=== PATIENT | female | born 1960 | race Caucasian/White ===

== ENCOUNTER 2019-12-02 10:21 | Emergency (ER) | payer BC, SELFPAY ==
--- NOTE | 2019-12-02 10:27 | ED_ITS ---
HPI - General Adult General Chief complaint: Urogenital-Female Stated complaint: confused /thinks uti or ear Source: patient and RN notes reviewed Mode of arrival: ambulatory Limitations: no limitations Review of Systems Review of Systems: All systems reviewed & are unremarkable except as noted in HPI and below [facility] Comments At time of signature, agree with nursing past medical, surgical, social and family history. There is no relevant family history pertinent to the presenting complaint Course Course Emergency Course: Patient is aware of diagnosis, understands and agrees to treatment plan. Anticipatory guidance given. Patient agrees to follow-up as directed and is aware of reasons to seek care at the emergency department. Portions of this record may have been created with voice recognition software Vital Signs Vital signs: Reviewed. Critical Care Time Critical Care Time Critical Care Time: No
== END 2019-12-02 10:43 | disposition left against medical advice (07) ==
LOC: EXPBETH 10:27
PROVIDERS: Emergency Provider Nurse Practitioner; PCP Internal Medicine
DX: Z53.21 Procedure and treatment not carried out due to patient leaving prior to being seen by health care provider (principal)
CPT/HCPCS: 99199

== ENCOUNTER 2020-08-24 14:48 | Outpatient (CLI) | payer BC, SELFPAY ==
[2020-08-24 15:31] LABS: Hematocrit 38.5 % (37.0-47.0); Mean Corpuscular HGB Conc 33.8 g/dl (32-36); Mean Corpuscular Hemoglobin 29.9 pg (26-34); Mean Corpuscular Volume 88.5 fl (80-100); Mean Platelet Volume 10.3 fl (7.4-10.4); Platelet Count Result 258 k/mm3 (150-375); Red Blood Count 4.35 M/mm3 (4.2-5.4); Red Cell Distribution Width 13.2 % (11.5-14.5)
[2020-08-24 15:43] LABS: Alanine Aminotransferase 37 U/L (4-35); Albumin Level 4.8 g/dL (3.5-5.1); Alkaline Phosphatase 118 U/L (38-126); Anion Gap 12 mmol/L (8-16); Aspartate Amino Transferase 39 U/L (14-36); Bilirubin,Total 1.2 mg/dL (0.2-1.3); Blood Urea Nitrogen 5 mg/dL (7-17); Calcium 9.8 mg/dL (8.4-10.2); Carbon Dioxide 22 mmol/L (22-30); Chloride 98 mmol/L (98-107); Estimated Glomerular Filt Rate > 60; Glucose 184 mg/dL (65-105); Sodium 132 mmol/L (137-145)
[2020-08-24 15:54] LABS: Iron 43 ug/dL (37-170)
[2020-08-24 16:03] LABS: Percent Iron Saturation 10 % (20-50)
[2020-08-24 16:48] LABS: HAV RESULT Negative (Negative); Hepatitis B Core IgM Result Negative (Negative)
[2020-08-24 16:59] LABS: Hepatitis C Virus Antibody Negative (Negative)
[2020-08-25 06:16] LABS: Hepatitis B Surface Antigen 4.17 S/C; Hepatitis B Surface Antigen Reactive (Negative)
[2020-08-25 06:19] LABS: Hepatitis B Surface Antigen Re 4.08 S/C; Hepatitis B Surface Antigen Re 4.17 S/C
[2020-08-29 11:20] LABS: Ceruloplasmin 30 mg/dL (18-53)
[2020-08-31 10:36] LABS: Mitochondrial (M2) Ab (IgG) <=20.0 U (<=20.0)
== END 2020-08-24 14:49 | disposition home or self-care (01) ==
LOC: ANHLAB 14:52
PROVIDERS: PCP Internal Medicine; Visit Provider Nurse Practitioner Family
DX: K74.60 Unspecified cirrhosis of liver (principal)
CPT/HCPCS: 36415; 80053; 80074; 82104; 82105; 82390; 82728; 83520; 83540; 83550; 85027; 86038

== ENCOUNTER → 2020-10-01 02:01 | Outpatient (CLI) | payer BC, SELFPAY ==
[2020-10-01 19:43] LABS: SARS-CoV-2 RNA PCR Negative
== END ==
PROVIDERS: PCP Internal Medicine; Visit Provider Internal Medicine Gastroenterology
DX: Z01.812 Encounter for preprocedural laboratory examination (principal); Z20.822 Contact with and (suspected) exposure to COVID-19
CPT/HCPCS: C9803; U0003; U0005

== ENCOUNTER 2020-10-04 01:46 | Day surgery (SDC) | payer BC, SELFPAY ==
[2020-09-21 12:31] VITALS: BMI 23.8
--- NOTE | 2020-09-22 10:31 | SUR.PREOP ---
[address] Mcintosh regarding the patient's Plavix and patient being a poor historian and didn't know why she was on Plavix. Lab values from 08/24/[address] Mcintosh and we discussed her past medical history of stents placed in the [place] artery and the [place] mesenteric artery. We spoke with Lani DAVEY in Dr. Abraham Mack's office regarding her stents and plavix. Lani said the patient was due for her [address] Mcintosh agreed that he thought she should have her follow appointment with the vascular team prior to her EGD and colonoscopy procedures. Lani was called to see if she could get an appointment for the patient CECILIO and we would reschedule the patient for her procedure once she had her follow up appointment with the Vascular doctor. We asked Lani to note on her chart to ask care provider when seeing the patient on his opinion of stopping Plavix for her EGD and Colonoscopy.
[2020-10-04] MEDS: LACTATED RINGERS 1,000 ML 150 ML IV CONT (06:38)
[2020-10-04 06:40] LABS: Glucose Point of Care 154 (65-105)
[2020-10-04 06:44] VITALS: BP 121/58; PULSE 97; RESP 16; TEMP 36.4; O2SAT 97; BMI 23.3
--- NOTE | 2020-10-04 07:04 | WPDANESEPPF ---
Anes - Initial Pre Proc Eval Procedure: Operation Date: 10/04/20 07:30 Proposed Procedures p Esophagogastroduodenoscopy & Colonoscopy - Bruce Louis MD Date/Time: 10/04/20 07:04 Surgeon: Bruce Louis MD Pre Op Diagnosis: TALON, rectal bleeding and cirrhosis Patient Data Age: 60 Gender: F Height: 1.6 m Weight: 59.8 kg Last Vital Signs Temp 36.4 C 10/04/20 06:44 Pulse 97 10/04/20 06:44 Resp 16 10/04/20 06:44 BP 121/58 L 10/04/20 06:44 Pulse Ox 97 10/04/20 06:44 Allergies Allergy/AdvReac Type Severity Reaction Status Date / Time No Known Allergies Allergy Verified 10/04/20 06:20 Home Medications Medication Instructions Recorded Confirmed Type aspirin 81 mg tablet,delayed 81 mg PO DAILY 08/24/20 10/04/20 History release atorvastatin 80 mg tablet 80 mg PO DAILY 08/24/20 10/04/20 History clopidogrel 75 mg tablet 75 mg PO DAILY 08/24/20 10/04/20 History escitalopram oxalate 10 mg tablet 10 mg PO DAILY 08/24/20 10/04/20 History ferrous sulfate 325 mg (65 mg 325 mg PO DAILY 08/24/20 10/04/20 History iron) tablet furosemide 20 mg tablet 20 mg PO QAM 08/24/20 10/04/20 History sitagliptin 50 mg tablet 50 mg PO DAILY 08/24/20 10/04/20 History spironolactone 100 mg tablet 100 mg PO DAILY 08/24/20 10/04/20 History verapamil 240 mg 24 hr 240 mg PO DAILY 08/24/20 10/04/20 History capsule,extended release albuterol sulfate 2 inh INHALATION TID PRN 09/21/20 10/04/20 History empagliflozin [Jardiance] 10 mg PO DAILY 09/21/20 10/04/20 History unbhycflnixe-kqa-tdbt-FA-vit K 1 tablet PO DAILY 09/21/20 10/04/20 History [Adults Multivitamin] tiotropium bromide [Spiriva with 1 cap INHALATION DAILY PRN 09/21/20 10/04/20 History HandiHaler] vitamin B complex 1 cap PO DAILY 09/21/20 10/04/20 History Laboratory Tests 10/04/20 06:36 POC Capillary Glucose 154 mg/dl H mg/dl (65-105) Patient hx anesthesia problems: none Family hx anesthesia problems: none PMFSH Past Medical History Medical History (Updated 10/03/20 @ 08:31 by Leonard Driscoll DO) Anxiety Ascites due to alcoholic cirrhosis COPD (chronic obstructive pulmonary disease) Depression Diabetes Encounter for screening colonoscopy Hepatic cirrhosis History of alcohol abuse HTN (hypertension) Iron deficiency anemia Social History Social History (Updated 08/24/20 @ 13:36 by Usha Brennan [employer]) Smoking packs per day: 1.5 Smoking cigarettes per day: 30.0 Years smoked: 25 Smoking pack-years: 37.50 Smoking status: Former smoker Tobacco type: cigarettes Alcohol intake: former Substance use: never Substance use type: does not use Living arrangements: with family Spiritual care concerns: No Anes - Eval Final PreProcedure Day of Procedure 10/04/20 07:04 Patient weight: normal Heart: regular rate and rhythm Lungs: clear to auscultation and normal air movement Airway: Mallampati scale class II Neurological: alert and oriented Last oral intake: >/= 8 hours ASA classification: IV Emergent: no Anesthetic plan: proceed Anesthesia type and monitoring: general GIVS and standard monitoring Informed Consent: The patient's anesthetic plan and its attendant risks and benefits were discussed with the patient/family/POA. Questions were solicited and answers provided to the satisfaction of the patient/family/POA.
--- NOTE | 2020-10-04 07:38 | PM.HPGS ---
History of Present Illness History of Present Illness Consent: Risks, benefits, and alternatives have been discussed and questions answered. Patient agrees to proceed with procedure. Chief complaint: TALON, rectal bleeding and cirrhosis Narrative: Tasha Addison is a 60 year old female with cirrhosis, never had scopes Review of Systems Constitutional: Constitutional: Denies headache(s) and Denies weakness Eyes: Eyes: Denies blurry vision ENT: Reports Normal hearing present, Denies headache(s) and Denies neck pain Cardiovascular: Cardiovascular: Denies chest pain and Denies dyspnea Respiratory: Respiratory: Denies dyspnea Gastrointestinal: Gastrointestinal: Reports no additional gastrointestinal complaints Genitourinary: Genitourinary: Denies dysuria Musculoskeletal: Musculoskeletal: Denies neck pain Integumentary/Breasts: Skin/Breast: Denies dry skin Neurologic: Reports Normal hearing present, Denies headache(s) and Denies weakness Psychiatric: Psychiatric: Denies anxiety Endocrine: Endocrine: Denies change in body appearance Hematologic/Lymphatic: Hematologic/Lymphatic: Denies easy bleeding Allergic/Immunologic: Allergic/Immunologic: Denies urticaria PMFSH Past Medical History Medical History (Updated 10/04/20 @ 07:38 by Bruce Louis MD) Anxiety Ascites due to alcoholic cirrhosis Colon cancer screening COPD (chronic obstructive pulmonary disease) Depression Diabetes Encounter for screening colonoscopy Hepatic cirrhosis History of alcohol abuse HTN (hypertension) Iron deficiency anemia Social History Social History (Updated 08/24/20 @ 13:36 by Usha Brennan CMA) Smoking packs per day: 1.5 Smoking cigarettes per day: 30.0 Years smoked: 25 Smoking pack-years: 37.50 Smoking status: Former smoker Tobacco type: cigarettes Alcohol intake: former Substance use: never Substance use type: does not use Living arrangements: with family Spiritual care concerns: No Meds Home Medications and Allergies Home Medications Medication Instructions Recorded Confirmed Type aspirin 81 mg tablet,delayed 81 mg PO DAILY 08/24/20 10/04/20 History release atorvastatin 80 mg tablet 80 mg PO DAILY 08/24/20 10/04/20 History clopidogrel 75 mg tablet 75 mg PO DAILY 08/24/20 10/04/20 History escitalopram oxalate 10 mg tablet 10 mg PO DAILY 08/24/20 10/04/20 History ferrous sulfate 325 mg (65 mg 325 mg PO DAILY 08/24/20 10/04/20 History iron) tablet furosemide 20 mg tablet 20 mg PO QAM 08/24/20 10/04/20 History sitagliptin 50 mg tablet 50 mg PO DAILY 08/24/20 10/04/20 History spironolactone 100 mg tablet 100 mg PO DAILY 08/24/20 10/04/20 History verapamil 240 mg 24 hr 240 mg PO DAILY 08/24/20 10/04/20 History capsule,extended release albuterol sulfate 2 inh INHALATION TID PRN 09/21/20 10/04/20 History empagliflozin [Jardiance] 10 mg PO DAILY 09/21/20 10/04/20 History kntjdzfwkfxi-sjw-upaj-FA-vit K 1 tablet PO DAILY 09/21/20 10/04/20 History [Adults Multivitamin] tiotropium bromide [Spiriva with 1 cap INHALATION DAILY PRN 09/21/20 10/04/20 History HandiHaler] vitamin B complex 1 cap PO DAILY 09/21/20 10/04/20 History Allergies Allergy/AdvReac Type Severity Reaction Status Date / Time No Known Allergies Allergy Verified 10/04/20 06:20 Vital Signs Vital Signs - 24 hr 10/04/20 06:44 Temperature 97.6 F Pulse Rate 97 Respiratory Rate 16 Blood Pressure 121/58 L Pulse Oximetry 97 Exam Const: General: comfortable and no acute distress HENMT: General nose exam: Normal nares present Eyes: General: appearance normal, both eyes and all related structures Neck: Neck: no JVD Resp: Auscultation: clear to auscultation bilaterally Cardio: Rate: regular rate Rhythm: regular rhythm GI: Inspection: non-distended GI Palp: Yes Soft to palpation Skin: General skin exam: normal color Neuro: General: gait normal Speech: normal speech Ex
[2020-10-04 08:00] VITALS: BP 109/51; PULSE 76; RESP 22; O2SAT 99
[2020-10-04 08:10] VITALS: BP 107/57; PULSE 71; RESP 17; O2SAT 99
[2020-10-04 08:27] VITALS: BP 123/56; PULSE 68; RESP 24; O2SAT 100
== END 2020-10-04 08:31 | disposition home or self-care (01) ==
PROVIDERS: PCP Internal Medicine; Visit Provider Internal Medicine Gastroenterology
PROC: 0DJ08ZZ Inspection of Upper Intestinal Tract, Via Natural or Artificial Opening Endoscopic (ICD-10-PCS; CPT 43235; principal; 2020-10-04 07:30)
DX: Z12.11 Encounter for screening for malignant neoplasm of colon (principal); K64.8 Other hemorrhoids; Z98.0 Intestinal bypass and anastomosis status; K63.89 Other specified diseases of intestine; K74.60 Unspecified cirrhosis of liver; J44.9 Chronic obstructive pulmonary disease, unspecified; E11.9 Type 2 diabetes mellitus without complications; I10 Essential (primary) hypertension; D50.9 Iron deficiency anemia, unspecified; F41.8 Other specified anxiety disorders; Z87.891 Personal history of nicotine dependence; Z79.02 Long term (current) use of antithrombotics/antiplatelets; Z79.82 Long term (current) use of aspirin; Z79.84 Long term (current) use of oral hypoglycemic drugs; Z79.51 Long term (current) use of inhaled steroids
CPT/HCPCS: 43235; 45378; 82948; J2704; J7120

== ENCOUNTER 2020-10-25 07:43 | Outpatient (CLI) | payer BC, SELFPAY ==
--- NOTE | ~2020-10-25 | US_ITS ---
US abdomen complete EXAMINATION: US Abdomen Complete INDICATION: Cirrhosis. PROCEDURE: Realtime High Resolution abdomen ultrasound. COMPARISON: No prior studies for comparison FINDINGS: There are gallstones. Common bile duct measures 4.5 mm. Liver echotexture within normal limits without focal mass. Pancreas within normal limits. Pancreati c tail is obscured by bowel gas. Spleen is unremarkeable. Renal echotexture is within normal limits bilaterally without hydronephrosis, contour deforming mass or renal stone. Right kidney measures 9.2 cm. Left kidney measures 9.5 cm. Visualized aspects of the aorta and IVC are within normal limits. Portal vein is patent. No sonograph ic Fox's sign indicated by the technologist. IMPRESSION: 1: Cholelithiasis. Reviewed, dictated and finalized at location D. IMPRESSION: 1: Cholelithiasis.
== END 2020-10-25 07:44 | disposition home or self-care (01) ==
PROVIDERS: PCP Internal Medicine; Visit Provider Nurse Practitioner Family
DX: K74.60 Unspecified cirrhosis of liver (principal); K80.20 Calculus of gallbladder without cholecystitis without obstruction
CPT/HCPCS: 76700